=== PATIENT | female | born 1960 | race Caucasian/White ===

== ENCOUNTER 2016-12-29 10:14 | Emergency (ER) | payer BC ==
[2016-12-29] MEDS ORDERED: IV NORMAL SALINE 1000ML BAG 1,000 ML IV ONE (10:45)
[2016-12-29] MEDS ORDERED: ONDANSETRON ODT 4 MG TAB.RAPDIS. PO ONE (11:00)
[2016-12-29] MEDS ORDERED: diazePAM 5 MG TABLET PO ONE (11:00)
[2016-12-29 11:03] LABS: BILIRUBIN,URINE SMALL (NEG); GLUCOSE,URINE NEGATIVE (NEG); NITRITE,URINE POSITIVE (NEG); PROTEIN,URINE 30 mg/dL (NEG-TRACE)
[2016-12-29 11:03] LABS: CALCIUM 9.7 mg/dL (8.5-10.1); CREATININE 0.8 mg/dL (0.6-1.0); GFR 74.7; POTASSIUM 3.7 mmol/L (3.5-5.1)
[2016-12-29 11:04] LABS: MAGNESIUM 1.9 mg/dL (1.8-2.4)
[2016-12-29 11:07] LABS: BASO % 1 % (0-3); EOS % 2 % (0-3); HEMATOCRIT 38.6 % (36.0-47.0); HEMOGLOBIN 13.3 g/dL (12.0-15.5); LYMPH # 2.3 x10^3/uL (1.0-4.8); LYMPH % 38 % (24-48); MEAN CORPUSCULAR HEMOGLOBIN 29 pg (25-35); MEAN CORPUSCULAR HGB CONC 35 g/dL (31-37); MEAN CORPUSCULAR VOLUME 85 fL (79-100); MONO % 7 % (0-9); NEUT % 52 % (31-73); PLATELET COUNT 231 x10^3/uL (140-400); RED BLOOD COUNT 4.55 x10^6/uL (3.50-5.40); RED CELL DISTRIBUTION WIDTH 13.5 % (11.5-14.5); WHITE BLOOD COUNT 6.1 x10^3/uL (4.0-11.0)
[2016-12-29 11:17] LABS: BARBITURATES NEG (NEG); BENZODIAZEPINES NEG (NEG); CANNABINOIDS NEG (NEG); COCAINE NEG (NEG); METHADONE NEG (NEG); OPIATES NEG (NEG); PHENCYCLIDINE NEG (NEG)
[2016-12-29 11:17] LABS: INR 1.1 (0.8-1.1); PROTHROMBIN TIME PATIENT 13.5 SEC (11.7-14.0)
--- NOTE | 2016-12-29 11:17 | PHYS DOC ---
Past Medical History Past Medical History: Depression, Diabetes-Type II, Hypertension Past Surgical History: Cholecystectomy, Hysterectomy Alcohol Use: None Drug Use: None Adult General Chief Complaint Chief Complaint: HEADACHE HPI HPI Patient is a 56 year old female with history of hypertension, depression, diabetes type 2, who presents today with multiple complaints including 8-05/15/09 throbbing generalized headache for 4 days with intermittent episodes of dizziness, mild left wrist pain diffusely for 2 weeks, low back pain mild in nature for 2 weeks from sleeping on a couch. Patient denies a headache being the worst headache in her life. Patient states she is going through a lot of stress. She states she broke up with the and she is going through a divorce. She states they have an 18-year-old son and the ex- cannot see the son. She states she has a boyfriend currently who has history of cardiac problems. She states the boyfriend just skipped $15,000 bail which is putting patient under a lot of stress plus he is going through surgery for his back problems. She states she is under overwhelming stress. She states she used to take Zoloft for depression but she feels it's not helping. Patient denies any suicidal or homicidal ideation. Review of Systems Review of Systems Constitutional: Denies fever or chills [] Eyes: Denies change in visual acuity, redness, or eye pain [] HENT: Denies nasal congestion or sore throat [] Respiratory: Denies cough or shortness of breath [] Cardiovascular: No additional information not addressed in HPI [] GI: Denies abdominal pain, nausea, vomiting, bloody stools or diarrhea [] : Denies dysuria or hematuria [] Musculoskeletal: Left wrist pain, low back pain Integument: Denies rash or skin lesions [] Neurologic: Headache with dizziness Endocrine: Denies polyuria or polydipsia [] Psych:stress Current Medications Current Medications Current Medications Medications (Trade) Dose Ordered Sig/Inessa Start Time Stop Time Status Last Admin Dose Admin Diazepam (Valium) 5 mg 1X ONCE 12/29/16 11:00 12/29/16 11:01 DC 12/29/16 11:26 5 MG Ketorolac Tromethamine (Toradol) 30 mg 1X ONCE 12/29/16 12:00 12/29/16 12:01 DC 12/29/16 12:12 30 MG Ondansetron HCl (Zofran Odt) 4 mg 1X ONCE 12/29/16 11:00 12/29/16 11:01 DC 12/29/16 11:27 4 MG Sodium Chloride 1,000 ml @ 1,000 mls/hr 1X ONCE 12/29/16 10:45 12/29/16 11:44 DC 12/29/16 11:26 1,000 MLS/HR Allergies Allergies Allergies Coded Allergies Type Severity Reaction Last Updated Verified No Known Drug Allergies 12/29/16 No Physical Exam Physical Exam Constitutional: Well developed, well nourished, no acute distress, non-toxic appearance. [] HENT: Normocephalic, atraumatic, bilateral external ears normal, oropharynx moist, no oral exudates, nose normal. [] Eyes: PERRLA, EOMI, conjunctiva normal, no discharge. [] Neck: Normal range of motion, no tenderness, supple, no stridor. [] Cardiovascular:Heart rate regular rhythm, no murmur [] Lungs & Thorax: Bilateral breath sounds clear to auscultation [] Abdomen: Bowel sounds normal, soft, no tenderness, no masses, no pulsatile masses. [] Skin: Warm, dry, no erythema, no rash. [] Back: No tenderness, no CVA tenderness. [] Extremities: No tenderness, no cyanosis, no clubbing, ROM intact, no edema. [] Neurologic: Alert and oriented X 3, normal motor function, normal sensory function, no focal deficits noted. Cranial nerves II through XII intact Psychologic: Affect normal, judgement normal, mood normal. [] Current Patient Data Vital Signs Vital Signs Date Time Temp Pulse Resp B/P (MAP) Pulse Ox O2 Delivery O2 Flow Rate FiO2 12/29/16 11:28 59 18 180/86 (117) 99 Room Air 12/29/16 10:23 97.5 97.5 Lab Values Laboratory Tests Test 12/29/16 10:28 12/29/16 10:40 Urine Collection Type Unknown Urine Color Dilia Urine Clarity Clear Urine pH 6.0 Urine Specific [place] >=1.030 Urine Protein 30 mg/dL (NEG-TRACE) Urine Glucose (UA) Negative mg/dL (NEG) Urine Ketones (Stick) Negative mg/dL (NEG) Urine Blood Negative (NEG) Urine Nitrite Positive (NEG) Urine Bilirubin Small (NEG) Urine Urobilinogen Dipstick 1.0 mg/dL (0.2 mg/dL) Urine Leukocyte Esterase Small (NEG) Urine RBC Occ /HPF (0-2) Urine WBC 5-10 /HPF (0-4) Urine Squamous Epithelial Cells Few /LPF Urine Bacteria Mod /HPF (0-FEW) Urine Hyaline Casts Occasional /HPF Urine Mucus Mod /LPF Urine Opiates Screen Neg (NEG) Urine Methadone Screen Neg (NEG) Urine Barbiturates Neg (NEG) Urine Phencyclidine Screen Neg (NEG) Urine Amphetamine/Methamphetamine Neg (NEG) Urine Benzodiazepines Screen Neg (NEG) Urine Cocaine Screen Neg (NEG) Urine Cannabinoids Screen Neg (NEG) Urine Ethyl Alcohol Neg (NEG) White Blood Count 6.1 x10^3/uL (4.0-11.0) Red Blood Count 4.55 x10^6/uL (3.50-5.40) Hemoglobin 13.3 g/dL (12.0-15.5) Hematocrit 38.6 % (36.0-47.0) Mean Corpuscular Volume 85 fL (79-100) Mean Corpuscular Hemoglobin 29 pg (25-35) Mean Corpuscular Hemoglobin Concent 35 g/dL (31-37) Red Cell Distribution Width 13.5 % (11.5-14.5) Platelet Count 231 x10^3/uL (140-400) Neutrophils (%) (Auto) 52 % (31-73) Lymphocytes (%) (Auto) 38 % (24-48) Monocytes (%) (Auto) 7 % (0-9) Eosinophils (%) (Auto) 2 % (0-3) Basophils (%) (Auto) 1 % (0-3) Neutrophils # (Auto) 3.2 x10^3uL (1.8-7.7) Lymphocytes # (Auto) 2.3 x10^3/uL (1.0-4.8) Monocytes # (Auto) 0.4 x10^3/uL (0.0-1.1) Eosinophils # (Auto) 0.1 x10^3/uL (0.0-0.7) Basophils # (Auto) 0.0 x10^3/uL (0.0-0.2) Prothrombin Time 13.5 SEC (11.7-14.0) Prothrombin Time INR 1.1 (0.8-1.1) PTT 29 SEC (24-38) Sodium Level 141 mmol/L (136-145) Potassium Level 3.7 mmol/L (3.5-5.1) Chloride Level 103 mmol/L (98-107) Carbon Dioxide Level 28 mmol/L (21-32) Anion Gap 10 (6-14) Blood Urea Nitrogen 11 mg/dL (7-20) Creatinine 0.8 mg/dL (0.6-1.0) Estimated GFR (Cockcroft-Gault) 74.7 Glucose Level 192 mg/dL (70-99) H Calcium Level 9.7 mg/dL (8.5-10.1) Magnesium Level 1.9 mg/dL (1.8-2.4) Creatine Kinase 42 U/L (26-192) Creatine Kinase MB (Mass) 0.5 ng/mL (0.0-3.6) Creatine Kinase MB Relative Index % (0-4) Troponin I Quantitative < 0.017 ng/mL (0.000-0.055) RL-Zgt-D-Type Natriuretic Peptide 232 pg/mL (0-124) H Ethyl Alcohol Level < 10 mg/dL (0-10) Laboratory Tests 12/29/16 10:40 Laboratory Tests 12/29/16 10:40 EKG EKG 11:[address] Gauri gerardo rym, HR 56 no STEMI[] Radiology/Procedures Radiology/Procedures [] Course & Med Decision Making Course & Med Decision Making Pertinent Labs and Imaging studies reviewed. (See chart for details) This is a 56-year-old female patient presenting to the ED today with multiple complaints related to stress. Patient states as noted in history of present illness she is going through a divorce and currently is dating another man that has medical problems and also skipped a $[id number] bail causing patient alot of stress. Patient just came from one of the floors in the hospital where the boyfriend is admitted waiting for MRI of his lumbar spine as well as surgery on his lumbar spine for chronic back pain. Please see history of present illness for further information Patient's workup in the ED was essentially negative. Her urine was noted to have nitrites. She'll be discharged with Cipro. She was discharged with [id number] tablets and diclofenac for her pain. I highly recommended she follows up with [facility] for stress. Her blood pressure was 164/81 to 180 /86 on arrival to the ED. Patient states she just took her blood pressure medicines prior to coming to the ED. She takes amlodipine/HCTZ, lisinopril and one more medication she could not remember. We will recheck her blood pressure before she leaves. Dragon Disclaimer Dragon Disclaimer This electronic medical record was generated, in whole or in part, using a voice recognition dictation system. Departure Departure Impression: Primary Impression: Stress Additional Impressions: Hypertension Urinary tract infection Headache Back pain Disposition: HOME, SELF-CARE Condition: STABLE Patient Instructions: Anxiety and Panic Attacks, [id number], Back Pain, Adult , General Headache Without Cause, [id number], Hypertension Additional Instructions: You were seen for stress related symptoms, try and contact [facility] on Sunday, their phone number is [phone] and follow up for stress. Your urine also tested positive for infection. We put you on antibiotics. Ensure you complete them. Scripts Ciprofloxacin Hcl (CIPRO) 500 Mg Tablet 1 TAB PO BID, #14 TAB Prov: HERMILO BENNETT APRN 12/29/16 Diazepam (VALIUM) 5 Mg Tablet 5 MG PO TID, #15 TAB Prov: HERMILO BENNETT APRN 12/29/16 Diclofenac Sodium (DICLOFENAC SODIUM) 50 Mg Tablet.dr 1 TAB PO BID, #20 TAB 0 Refills Prov: HERMILO BENNETT APRN 12/29/16 Problem Qualifiers Additional Impressions: Hypertension Hypertension type: unspecified secondary hypertension Qualified Codes: I15.9 - Secondary hypertension, unspecified Urinary tract infection Urinary tract infection type: acute cystitis Hematuria presence: without hematuria Qualified Codes: N30.00 - Acute cystitis without hematuria Headache Headache type: unspecified Headache chronicity pattern: acute headache Intractability: not intractable Qualified Codes: R51 - Headache Back pain Back pain location: low back pain Chronicity: acute Back pain laterality: bilateral Sciatica presence: without sciatica Qualified Codes: M54.5 - Low back pain HERMILO BENNETT APRN Dec 29, 2016 11:17
[2016-12-29 11:18] LABS: CKMB MASS 0.5 ng/mL (0.0-3.6); CREATINE KINASE 42 U/L (26-192)
[2016-12-29 11:24] LABS: BACTERIA,URINE MOD /HPF (0-FEW); RBC,URINE OCC /HPF (0-2); SQUAMOUS EPITHELIAL CELL,UR FEW /LPF
[2016-12-29] MEDS ORDERED: KETOROLAC TROMETHAMINE 30 MG/ML INJ. IV ONE (12:00)
[2016-12-29] MEDS ORDERED: DICL50TA4 PO (12:39)
[2016-12-29] MEDS ORDERED: DIAZ5TAB PO (12:39)
[2016-12-29] MEDS ORDERED: CIPR500T94 PO (12:43)
[2016-12-29 12:46] VITALS: BP 171/80
--- NOTE | 2016-12-29 13:01 | EKG ---
[facility] [address] [place] [address] Test Date: 2016-12-29 Test Time: 11:03:20 Pat Name: MASHA GAITAN Department: Room: Gender: F [place]: : 1960 Requested By: HERMILO BENNETT Order Number: [id number] Reading MD: Savannah Valverde Measurements Intervals [place] Rate: 56 P: 46 ND: 192 QRS: 28 QRSD: 80 T: 48 QT: 422 QTc: 410 Interpretive Statements SINUS RHYTHM NORMAL ECG Electronically Signed On 12-30-2016 16:19:01 CDT by Savannah Valverde
== END 2016-12-29 13:03 | disposition home or self-care (01) ==
LOC: ER 10:14
DX: F43.9 Reaction to severe stress, unspecified (principal); I15.9 Secondary hypertension, unspecified; N30.00 Acute cystitis without hematuria; E11.9 Type 2 diabetes mellitus without complications
CPT/HCPCS: 36415; 80048; 80307; 81001; 82553; 83735; 83880; 84484; 85025; 85610; 85730; 93005; 96361; 96374; 99285; G0480; J1885; J7030; Q0162; G0479

== ENCOUNTER 2018-02-19 06:48 | Emergency (ER) | payer SELFPAY ==
[~2018-02-19] VITALS: Ht 165.1 cm; Wt 83.9 kg
[~2018-02-19 06:48] MED LIST: CIPR500T94 PO; DIAZ5TAB PO; DICL50TA4 PO
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
[2018-02-19 08:30] VITALS: BP 180/82
== END 2018-02-19 08:49 | disposition home or self-care (01) ==
LOC: ER 07:22
DX: M25.561 Pain in right knee (principal); I10 Essential (primary) hypertension; E11.9 Type 2 diabetes mellitus without complications; F32.9 Major depressive disorder, single episode, unspecified; Z90.49 Acquired absence of other specified parts of digestive tract; Z90.710 Acquired absence of both cervix and uterus
CPT/HCPCS: 99283

== ENCOUNTER 2018-04-25 17:48 | Emergency (ER) | payer SELFPAY ==
[~2018-04-25] VITALS: Ht 165.1 cm; Wt 83.9 kg
--- NOTE | 2018-04-25 18:23 | PHYS DOC ---
Past Medical History Past Medical History: Depression, Diabetes-Type II, Hypertension Past Surgical History: Cholecystectomy, Hysterectomy Alcohol Use: None Drug Use: None Adult General Chief Complaint Chief Complaint: ACCIDENTAL INGESTION HPI HPI Patient is a 57 year old female who presents with drug ingestion. The patient was at her house around 1600 today. She states she took for 2 mg Xanax and for tizanidine. The medications were not hers. They blocked her boyfriend. The patient to the medication because she was upset that she found out her boyfriend was cheating on her today. She denies feeling suicidal. She has never done this in the past. She denies prior history of psychiatric issues. Review of Systems Review of Systems Constitutional: Denies fever or chills [] Eyes: Denies change in visual acuity, redness, or eye pain [] HENT: Denies nasal congestion or sore throat [] Respiratory: Denies cough or shortness of breath [] Cardiovascular: No additional information not addressed in HPI [] GI: Denies abdominal pain, nausea, vomiting, bloody stools or diarrhea [] : Denies dysuria or hematuria [] Musculoskeletal: Denies back pain or joint pain [] Integument: Denies rash or skin lesions [] Neurologic: Denies headache, focal weakness or sensory changes [] Endocrine: Denies polyuria or polydipsia [] All other systems were reviewed and found to be within normal limits, except as documented in this note. Allergies Allergies Allergies Coded Allergies Type Severity Reaction Last Updated Verified No Known Drug Allergies 12/29/16 No Physical Exam Physical Exam Constitutional: Well developed, well nourished, no acute distress, non-toxic appearance. [] HENT: Normocephalic, atraumatic, bilateral external ears normal, oropharynx moist, no oral exudates, nose normal. [] Eyes: PERRLA, EOMI, conjunctiva normal, no discharge. [] Neck: Normal range of motion, no tenderness, supple, no stridor. [] Cardiovascular:Heart rate regular rhythm, no murmur [] Lungs & Thorax: Bilateral breath sounds clear to auscultation [] Abdomen: Bowel sounds normal, soft, no tenderness, no masses, no pulsatile masses. [] Skin: Warm, dry, no erythema, no rash. [] Back: No tenderness, no CVA tenderness. [] Extremities: No tenderness, no cyanosis, no clubbing, ROM intact, no edema. [] Neurologic: Alert and oriented X 3, normal motor function, normal sensory function, no focal deficits noted. [] Psychologic: Affect normal, judgement normal, mood normal. [] Current Patient Data Vital Signs Vital Signs Date Time Temp Pulse Resp B/P (MAP) Pulse Ox O2 Delivery O2 Flow Rate FiO2 04/25/18 22:50 56 14 144/70 (94) 95 Room Air 04/25/18 17:50 97.5 97.5 Lab Values Laboratory Tests Test 04/25/18 17:58 04/25/18 19:09 White Blood Count 4.9 x10^3/uL (4.0-11.0) Red Blood Count 4.28 x10^6/uL (3.50-5.40) Hemoglobin 12.6 g/dL (12.0-15.5) Hematocrit 36.9 % (36.0-47.0) Mean Corpuscular Volume 86 fL (79-100) Mean Corpuscular Hemoglobin 29 pg (25-35) Mean Corpuscular Hemoglobin Concent 34 g/dL (31-37) Red Cell Distribution Width 13.9 % (11.5-14.5) Platelet Count 170 x10^3/uL (140-400) Neutrophils (%) (Auto) 46 % (31-73) Lymphocytes (%) (Auto) 41 % (24-48) Monocytes (%) (Auto) 5 % (0-9) Eosinophils (%) (Auto) 7 % (0-3) H Basophils (%) (Auto) 1 % (0-3) Neutrophils # (Auto) 2.3 x10^3uL (1.8-7.7) Lymphocytes # (Auto) 2.0 x10^3/uL (1.0-4.8) Monocytes # (Auto) 0.3 x10^3/uL (0.0-1.1) Eosinophils # (Auto) 0.3 x10^3/uL (0.0-0.7) Basophils # (Auto) 0.0 x10^3/uL (0.0-0.2) Salicylates Level < 2.8 mg/dL (2.8-20.0) L Salicylate Last Dose Date Salicylate Last Dose Time Acetaminophen Level < 2 mcg/ml (10-30) L Acetaminophen Last Dose Date Acetaminophen Last Dose Time Urine Opiates Screen Neg (NEG) Urine Methadone Screen Neg (NEG) Urine Barbiturates Neg (NEG) Urine Phencyclidine Screen Neg (NEG) Urine Amphetamine/Methamphetamine Neg (NEG) Urine Benzodiazepines Screen Pos (NEG) Urine Cocaine Screen Neg (NEG) Urine Cannabinoids Screen Neg (NEG) Urine Ethyl Alcohol Neg (NEG) Laboratory Tests 04/25/18 17:58 EKG EKG No STEMI Interpretation Time: 18:05 Radiology/Procedures Radiology/Procedures [] Course & Med Decision Making Course & Med Decision Making Pertinent Labs and Imaging studies reviewed. (See chart for details) Patient was evaluated in the emergency department after taking 4 times in and for 2 mg Xanax. She took the medications at about 1600 today. The patient was not trying to kill herself. In the emergency department, she did have slurred speech on arrival and was somnolent but easily aroused. She was observed in the emergency department for a period of over 6 hours. She did become more awake during the ED course. Her vital signs remained stable throughout the ED course. Her EKG was nonacute with no QTC prolongation. Her drug screen was positive only for benzodiazepines. Her Tylenol and salicylate levels were not elevated. Her CBC was all normal range. The patient was evaluated by the psychiatric assessment team who deemed her fit for discharge to home as the patient did not have acute suicidality. After the period of observation, the patient was awake and alert. Transportation was provided for her to go home. She was provided resources to follow up to help with her stressful time. She was encouraged to come to the ER for any worsening symptoms. At discharge, the patient did express remorse for taking the medications and emphasized that she was not suicidal. Dragon Disclaimer Dragon Disclaimer This electronic medical record was generated, in whole or in part, using a voice recognition dictation system. Departure Departure Condition: GOOD Referrals: NO PCP (PCP) TREVON HDZ DO Apr 25, 2018 18:23
[2018-04-25 19:22] LABS: AMPHETAMINE/METHAMPHETAMINE NEG (NEG); BARBITURATES NEG (NEG); BENZODIAZEPINES POS (NEG); CANNABINOIDS NEG (NEG); COCAINE NEG (NEG); METHADONE NEG (NEG); OPIATES NEG (NEG); PHENCYCLIDINE NEG (NEG)
[2018-04-25 20:55] LABS: BASO % 1 % (0-3); EOS # 0.3 x10^3/uL (0.0-0.7); EOS % 7 % (0-3); HEMATOCRIT 36.9 % (36.0-47.0); HEMOGLOBIN 12.6 g/dL (12.0-15.5); LYMPH % 41 % (24-48); MEAN CORPUSCULAR HEMOGLOBIN 29 pg (25-35); MEAN CORPUSCULAR HGB CONC 34 g/dL (31-37); MEAN CORPUSCULAR VOLUME 86 fL (79-100); MONO # 0.3 x10^3/uL (0.0-1.1); MONO % 5 % (0-9); NEUT # 2.3 x10^3uL (1.8-7.7); NEUT % 46 % (31-73); PLATELET COUNT 170 x10^3/uL (140-400); RED BLOOD COUNT 4.28 x10^6/uL (3.50-5.40); RED CELL DISTRIBUTION WIDTH 13.9 % (11.5-14.5); WHITE BLOOD COUNT 4.9 x10^3/uL (4.0-11.0)
[2018-04-25 21:14] LABS: ACETAMIN < 2 mcg/ml (10-30); SALIC < 2.8 mg/dL (2.8-20.0)
[2018-04-26 00:30] VITALS: BP 119/70
--- NOTE | 2018-04-26 07:38 | EKG ---
[facility] [address] [place] [address] Test Date: 2018-04-25 Test Time: 18:01:52 Pat Name: MASHA GAITAN Department: Room: Gender: F [place]: : 1960 Requested By: TREVON HDZ Order Number: [id number] Reading MD: Dhaval Solano MD Measurements Intervals [place] Rate: 53 P: NE: QRS: 25 QRSD: 82 T: 77 QT: 426 QTc: 405 Interpretive Statements SR Electronically Signed On 04-29-2018 10:36:42 TELEPHONE ASSEMBLER by Dhaval Solano MD
== END 2018-04-26 01:06 | disposition home or self-care (01) ==
LOC: ER 17:48
DX: T42.4X1A Poisoning by benzodiazepines, accidental (unintentional), initial encounter (principal); T42.8X1A Poisoning by antiparkinsonism drugs and other central muscle-tone depressants, accidental (unintentional), initial encounter; R47.81 Slurred speech; F32.9 Major depressive disorder, single episode, unspecified; E11.9 Type 2 diabetes mellitus without complications; I10 Essential (primary) hypertension; Z90.49 Acquired absence of other specified parts of digestive tract; Z90.710 Acquired absence of both cervix and uterus; Y92.099 Unspecified place in other non-institutional residence as the place of occurrence of the external cause
CPT/HCPCS: 36415; 80307; 80329; 85025; 93005; 99284; G6039; G0480

== ENCOUNTER 2018-05-27 19:24 | Emergency (ER) | payer SELFPAY ==
[~2018-05-27] VITALS: Ht 165.1 cm; Wt 83.9 kg
[2018-05-27] MEDS ORDERED: IBUPROFEN 400 MG TABLET. PO ONE (19:45)
[2018-05-27] MEDS ORDERED: HYDROcodone/APAP 5/325MG 1 TAB TABLET PO ONE (19:45)
--- NOTE | 2018-05-27 19:45 | PHYS DOC ---
Past Medical History Past Medical History: Anxiety, Depression, Diabetes-Type II, Hypertension Past Surgical History: Cholecystectomy, Hysterectomy Alcohol Use: None Drug Use: None Adult General Chief Complaint Chief Complaint: MECHANICAL FALL HPI HPI Patient is a 57 year old female who presents with low back pain after a fall. Patient states she fell 2 days earlier while she was in the bathtub. She slipped on a piece of soap and fell backwards landing on her back. Today, she presents to the emergency department complaining of lumbar spine pain. She also complains of some abdominal wall pain. She has been having pain over the last 48 hours. She has been able to ambulate. Denies urinary symptoms. She did not strike her head. She does not complain of cervical neck pain. No loss of consciousness. No nausea or vomiting. Note, the patient arrives via ambulance and is ambulatory through the door to her room. She is taking on her cell phone during the interview and examination. No distress. Review of Systems Review of Systems Constitutional: Denies fever or chills Eyes: Denies change in visual acuity HENT: Denies nasal congestion Respiratory: Denies cough or shortness of breath Cardiovascular: No additional information not addressed in HPI GI: + abdominal wall pain : Denies dysuria or hematuria Musculoskeletal: lumbar pain as described above Integument: Denies rash or skin lesions Neurologic: Denies headache All other systems were reviewed and found to be within normal limits, except as documented in this note. Current Medications Current Medications Current Medications Medications (Trade) Dose Ordered Sig/Inessa Start Time Stop Time Status Last Admin Dose Admin Acetaminophen/ Hydrocodone Bitart (Lortab 5/325) 1 tab 1X ONCE 05/27/18 19:45 05/27/18 19:46 DC 05/27/18 19:57 1 TAB Ibuprofen (Motrin) 800 mg 1X ONCE 05/27/18 19:45 05/27/18 19:46 DC 05/27/18 19:58 800 MG Allergies Allergies Allergies Coded Allergies Type Severity Reaction Last Updated Verified No Known Drug Allergies 12/29/16 No Physical Exam Physical Exam Constitutional: Well developed, well nourished, no acute distress, non-toxic appearance HENT: Normocephalic, atraumatic, bilateral external ears normal, oropharynx moist Eyes: PERRLA, EOMI Neck: Normal range of motion, no tenderness Cardiovascular:Heart rate regular rhythm, no murmur Lungs & Thorax: Bilateral breath sounds clear to auscultation Abdomen: Bowel sounds normal, soft, no tenderness, no trauma Skin: Warm, dry, no erythema, no rash, no signs of trauma Back: TTP over the lumbar midline and paraspinal muscles Extremities: No trauma seen. Normal examination Neurologic: Alert and oriented X 3 Psychologic: Affect normal Current Patient Data Vital Signs Vital Signs Date Time Temp Pulse Resp B/P (MAP) Pulse Ox O2 Delivery O2 Flow Rate FiO2 05/27/18 20:37 85 18 96 05/27/18 19:34 98.1 182/77 (112) Room Air 98.1 EKG EKG [] Radiology/Procedures Radiology/Procedures Lumbar XR: Comparison: None are available Vertebral body height is maintained. There is mild degenerative spondylosis with marginal spurring. No significant subluxation. Aortic calcification. Surgical clips right upper quadrant. Posterior element defect incidentally noted at about L5. IMPRESSION: Degenerative spondylosis, mild. Course & Med Decision Making Course & Med Decision Making Pertinent Labs and Imaging studies reviewed. (See chart for details) 20:40: Patient is seen and examined. She is complaining primarily of lumbar back pain. She also complains of pain about the abdominal wall. Her abdominal exam is completely benign and there is no tenderness to palpation or signs of trauma. She does have tenderness to palpation about the midline in the lumbar area so plain film radiographs are ordered. Tramadol and ibuprofen are ordered for pain symptoms. 21:15: X-ray results are reviewed. There are no acute findings. Plan is for discharge home. The patient is given some ibuprofen and Lostant for pain symptoms at home. She is advised to come back to the ER for any new or worsening symptoms. She is agreeable to the plan of care and all of her questions are answered prior to discharge home. Dragon Disclaimer Lalaon Disclaimer This electronic medical record was generated, in whole or in part, using a voice recognition dictation system. Departure Departure Disposition: HOME, SELF-CARE Condition: GOOD Referrals: NO PCP (PCP) Scripts Hydrocodone/Apap 5-325 (NORCO 5-325 TABLET) 1 Each Tablet 1-2 EACH PO PRN Q6HRS PRN for SEVERE PAIN, #15 as needed for pain Prov: TREVON HDZ DO 05/27/18 Ibuprofen (IBUPROFEN) 800 Mg Tablet 800 MG PO PRN TID PRN for PAIN, #30 TAB take with food or milk to avoid upsetting stomach Prov: TREVON HDZ DO 05/27/18 TREVON HDZ DO May 27, 2018 19:45
[2018-05-27 20:37] VITALS: BP 184/80
--- NOTE | 2018-05-27 21:11 | RAD ---
LUMBAR SPINE 2-3V History: fall x2 days. lower back pain. Comparison: None are available Vertebral body height is maintained. There is mild degenerative spondylosis with marginal spurring. No significant subluxation. Aortic calcification. Surgical clips right upper quadrant. Posterior element defect incidentally noted at about L5. IMPRESSION: Degenerative spondylosis, mild. Electronically signed by: Ritesh Solomon MD (05/27/2018 9:07 PM) [facility]
[2018-05-27] MEDS ORDERED: IBUP-1060 PO (21:17)
[2018-05-27] MEDS ORDERED: HYDR-3164 PO (21:17)
== END 2018-05-27 21:17 ==
LOC: ER 19:24
DX: M47.896 Other spondylosis, lumbar region (principal); R10.9 Unspecified abdominal pain; F41.9 Anxiety disorder, unspecified; F32.9 Major depressive disorder, single episode, unspecified; E11.9 Type 2 diabetes mellitus without complications; I10 Essential (primary) hypertension; Z90.49 Acquired absence of other specified parts of digestive tract; Z90.710 Acquired absence of both cervix and uterus; W01.0XXA Fall on same level from slipping, tripping and stumbling without subsequent striking against object, initial encounter; Y93.89 Activity, other specified; Y92.89 Other specified places as the place of occurrence of the external cause; Y99.8 Other external cause status
CPT/HCPCS: 72100; 99283

== ENCOUNTER 2018-07-11 17:28 | Emergency (ER) | payer SELFPAY ==
[~2018-07-11] VITALS: Ht 165.1 cm; Wt 81.6 kg
[~2018-07-11 17:28] MED LIST changes: +HYDR-3164 PO; +IBUP-1060 PO
[2018-07-11 18:15] VITALS: BP 154/83
[2018-07-11] MEDS ORDERED: KETOROLAC 60 MG/2 ML VIAL. IM ONE (18:30)
--- NOTE | 2018-07-11 19:00 | PHYS DOC ---
Past Medical History Past Medical History: Anxiety, Depression, Diabetes-Type II, Hypertension Past Surgical History: Cholecystectomy, Hysterectomy Alcohol Use: None Drug Use: None Adult General Chief Complaint Chief Complaint: GENERALIZED BODY ACHES HPI HPI Patient is a 57 year old female who presents with muscle pains with no injury. The patient states she has been achy. She has not taken ibuprofen or tylenol. She has not seen her primary. Review of Systems Review of Systems Constitutional: Denies fever or chills [] Eyes: Denies change in visual acuity, redness, or eye pain [] HENT: Denies nasal congestion or sore throat [] Respiratory: Denies cough or shortness of breath [] Cardiovascular: No additional information not addressed in HPI [] GI: Denies abdominal pain, nausea, vomiting, bloody stools or diarrhea [] : Denies dysuria or hematuria [] Musculoskeletal: See HPI Integument: Denies rash or skin lesions [] Neurologic: Denies headache, focal weakness or sensory changes [] Endocrine: Denies polyuria or polydipsia [] All other systems were reviewed and found to be within normal limits, except as documented in this note. Current Medications Current Medications Current Medications Medications (Trade) Dose Ordered Sig/Inessa Start Time Stop Time Status Last Admin Dose Admin Ketorolac Tromethamine (Toradol Im) 60 mg 1X ONCE 07/11/18 18:30 07/11/18 18:31 DC 07/11/18 18:51 60 MG Allergies Allergies Allergies Coded Allergies Type Severity Reaction Last Updated Verified No Known Drug Allergies 12/29/16 No Physical Exam Physical Exam Constitutional: Well developed, well nourished, no acute distress, non-toxic appearance. [] HENT: Normocephalic, atraumatic, bilateral external ears normal, oropharynx moist, no oral exudates, nose normal. [] Eyes: PERRLA, EOMI, conjunctiva normal, no discharge. [] Neck: Normal range of motion, no tenderness, supple, no stridor. [] Cardiovascular:Heart rate regular rhythm, no murmur [] Lungs & Thorax: Bilateral breath sounds clear to auscultation [] Abdomen: Bowel sounds normal, soft, no tenderness, no masses, no pulsatile masses. [] Skin: Warm, dry, no erythema, no rash. [] Back: No tenderness, no CVA tenderness. [] Extremities: No point tenderness or ecchymosis, no cyanosis, no clubbing, ROM intact, no edema. [] Neurologic: Alert and oriented X 3, normal motor function, normal sensory function, no focal deficits noted. [] Psychologic: Affect normal, judgement normal, mood normal. [] EKG EKG [] Radiology/Procedures Radiology/Procedures [] Course & Med Decision Making Course & Med Decision Making Pertinent Labs and Imaging studies reviewed. (See chart for details) []The patient was given toradol in the ED. She is to follow up with her PCP if her muscle aches return. Dragon Disclaimer Dragon Disclaimer This electronic medical record was generated, in whole or in part, using a voice recognition dictation system. Departure Departure Impression: Primary Impression: Myalgia Disposition: 01 HOME, SELF-CARE Condition: STABLE Referrals: NO PCP (PCP) Patient Instructions: Myalgia, Adult Additional Instructions: You may take ibuprofen or Tylenol for pain. Follow-up with your primary care provider for a recheck in 3 days. NOEMI JAVIER APRN Jul 11, 2018 19:00
== END 2018-07-11 19:10 | disposition home or self-care (01) ==
LOC: ER 17:28
DX: M79.18 Myalgia, other site (principal); F41.9 Anxiety disorder, unspecified; F32.9 Major depressive disorder, single episode, unspecified; E11.9 Type 2 diabetes mellitus without complications; I10 Essential (primary) hypertension; Z90.49 Acquired absence of other specified parts of digestive tract; Z90.710 Acquired absence of both cervix and uterus
CPT/HCPCS: 96372; 99283; J1885

== ENCOUNTER 2018-11-20 09:58 | Emergency (ER) | payer SELFPAY ==
[~2018-11-20] VITALS: Ht 165.1 cm; Wt 83.9 kg
[2018-11-20 10:00] VITALS: BP 155/93
[2018-11-20] MEDS ORDERED: KETOROLAC 30 MG/ML VIAL. IM ONE (10:45)
[2018-11-20] MEDS ORDERED: CYCLOBENZAPRINE 10 MG TABLET. PO ONE (10:45)
--- NOTE | 2018-11-20 11:12 | RAD ---
Three-view lumbar spine radiographs 11/20/2018 CLINICAL HISTORY: Low back pain. Fall. AP and 2 lateral digital radiographs of the lumbar spine were obtained. The alignment of the lumbar vertebrae is within normal limits. No fracture or subluxation is seen. Degenerative changes are seen involving the lower thoracic and throughout the lumbar disc spaces consisting of vertebral endplate sclerosis and minimal to mild anterior and posterior vertebral body osteophyte formation. Degenerative changes are seen involving the facet joints at L4-5 and L5-S1. Atherosclerotic calcification of the abdominal aorta is seen. IMPRESSION: No fracture or subluxation of the lumbar vertebrae is seen. Electronically signed by: Eyad Jacobo MD (11/20/2018 11:09 AM) [facility]
[2018-11-20] MEDS ORDERED: NAPR-695 PO (11:45)
[2018-11-20] MEDS ORDERED: ORPH100T PO (11:45)
--- NOTE | 2018-11-20 11:46 | PHYS DOC ---
Past Medical History Past Medical History: Anxiety, Depression, Diabetes-Type II, Hypertension Past Surgical History: Cholecystectomy, Hysterectomy Alcohol Use: Rarely Drug Use: None Adult General Chief Complaint Chief Complaint: SHOULDER INJURY HPI HPI Patient is a 57 year old [f__sex] who presents with [] Review of Systems Review of Systems Constitutional: Denies fever or chills [] Eyes: Denies change in visual acuity, redness, or eye pain [] HENT: Denies nasal congestion or sore throat [] Respiratory: Denies cough or shortness of breath [] Cardiovascular: No additional information not addressed in HPI [] GI: Denies abdominal pain, nausea, vomiting, bloody stools or diarrhea [] : Denies dysuria or hematuria [] Musculoskeletal: Denies back pain or joint pain [] Integument: Denies rash or skin lesions [] Neurologic: Denies headache, focal weakness or sensory changes [] Endocrine: Denies polyuria or polydipsia [] All other systems were reviewed and found to be within normal limits, except as documented in this note. Current Medications Current Medications Current Medications Medications (Trade) Dose Ordered Sig/Inessa Start Time Stop Time Status Last Admin Dose Admin Cyclobenzaprine HCl (Flexeril) 10 mg 1X ONCE 11/20/18 10:45 11/20/18 10:47 DC 11/20/18 11:09 10 MG Ketorolac Tromethamine (Toradol 30mg Vial) 30 mg 1X ONCE 11/20/18 10:45 11/20/18 10:47 DC 11/20/18 11:10 30 MG Allergies Allergies Allergies Coded Allergies Type Severity Reaction Last Updated Verified No Known Drug Allergies 12/29/16 No Physical Exam Physical Exam Constitutional: Well developed, well nourished, no acute distress, non-toxic appearance. [] HENT: Normocephalic, atraumatic, bilateral external ears normal, oropharynx moist, no oral exudates, nose normal. [] Eyes: PERRLA, EOMI, conjunctiva normal, no discharge. [] Neck: Normal range of motion, no tenderness, supple, no stridor. [] Cardiovascular:Heart rate regular rhythm, no murmur [] Lungs & Thorax: Bilateral breath sounds clear to auscultation [] Abdomen: Bowel sounds normal, soft, no tenderness, no masses, no pulsatile masses. [] Skin: Warm, dry, no erythema, no rash. [] Back: No tenderness, no CVA tenderness. [] Extremities: No tenderness, no cyanosis, no clubbing, ROM intact, no edema. [] Neurologic: Alert and oriented X 3, normal motor function, normal sensory f unction, no focal deficits noted. [] Psychologic: Affect normal, judgement normal, mood normal. [] Current Patient Data Vital Signs Vital Signs Date Time Temp Pulse Resp B/P (MAP) Pulse Ox O2 Delivery O2 Flow Rate FiO2 11/20/18 10:00 98.3 78 18 155/93 (113) 96 Room Air 98.3 EKG EKG [] Radiology/Procedures Radiology/Procedures [] Course & Med Decision Making Course & Med Decision Making Pertinent Labs and Imaging studies reviewed. (See chart for details) [] Dragon Disclaimer Dragon Disclaimer This electronic medical record was generated, in whole or in part, using a voice recognition dictation system. Departure Departure Impression: Primary Impression: Fall Additional Impressions: Thoracic back pain Lumbar back pain Medication refill Disposition: HOME, SELF-CARE Condition: STABLE Referrals: NO PCP (PCP) Patient Instructions: Back Pain, Adult, [id number], Medication Refill, Emergency Department, Thoracic Strain, [id number] Scripts Insulin Detemir (LEVEMIR) 100 Unit/1 Ml Vial 20 UNIT SQ Q12HR, #1 VIAL Prov: JOANNE LINDSAY DO 11/20/18 Orphenadrine Citrate (ORPHENADRINE CITRATE) 100 Mg Tablet.er 100 MG PO BID PRN for MUSCLE PAIN, #14 Prov: JOANNE LINDSAY DO 11/20/18 Naproxen (NAPROXEN) 375 Mg Tablet 1 TAB PO TID PRN for PAIN, #20 TAB Prov: JOANNE LINDSAY DO 11/20/18 Problem Qualifiers Primary Impression: Fall Encounter type: initial encounter Qualified Codes: W19.XXXA - Unspecified fall, initial encounter Additional Impressions: Thoracic back pain Chronicity: acute Back pain laterality: right Qualified Codes: M54.6 - Pain in thoracic spine JOANNE LINDSAY DO Nov 20, 2018 11:46
[2018-11-20] MEDS ORDERED: INSU100V13 SQ (11:51)
== END 2018-11-20 11:59 | disposition home or self-care (01) ==
LOC: ER 09:58
DX: M54.5 Low back pain (principal); M54.6 Pain in thoracic spine; Z76.0 Encounter for issue of repeat prescription; M25.511 Pain in right shoulder; W18.09XA Striking against other object with subsequent fall, initial encounter; Y93.89 Activity, other specified; Y92.89 Other specified places as the place of occurrence of the external cause; Y99.8 Other external cause status
CPT/HCPCS: 72100; 82962; 96372; 99285; J1885

== ENCOUNTER 2018-12-17 20:54 | Emergency (ER) | payer SELFPAY ==
[~2018-12-17] VITALS: Ht 165.1 cm; Wt 83.9 kg
[~2018-12-17 20:54] MED LIST changes: +INSU100V13 SQ; +NAPR-695 PO; +ORPH100T PO
[2018-12-17 23:30] VITALS: BP 118/75
[2018-12-18] MEDS ORDERED: HYDR-3164 PO (01:16)
[2018-12-18] MEDS ORDERED: CHLO15MO2 PO (01:16)
[2018-12-18] MEDS ORDERED: AMOX1TAB61 PO (01:16)
--- NOTE | 2018-12-18 01:16 | PHYS DOC ---
Past Medical History Past Medical History: Anxiety, Depression, Diabetes-Type II, Hypertension Past Surgical History: Cholecystectomy, Hysterectomy Alcohol Use: Rarely Drug Use: None Adult General Chief Complaint Chief Complaint: DENTAL PROBLEM HPI HPI Patient is a 58 year old [f__sex] who presents with [] Review of Systems Review of Systems Constitutional: Denies fever or chills [] Eyes: Denies change in visual acuity, redness, or eye pain [] HENT: Denies nasal congestion or sore throat [] Respiratory: Denies cough or shortness of breath [] Cardiovascular: No additional information not addressed in HPI [] GI: Denies abdominal pain, nausea, vomiting, bloody stools or diarrhea [] : Denies dysuria or hematuria [] Musculoskeletal: Denies back pain or joint pain [] Integument: Denies rash or skin lesions [] Neurologic: Denies headache, focal weakness or sensory changes [] Endocrine: Denies polyuria or polydipsia [] All other systems were reviewed and found to be within normal limits, except as documented in this note. Allergies Allergies Allergies Coded Allergies Type Severity Reaction Last Updated Verified No Known Drug Allergies 12/29/16 No Physical Exam Physical Exam Constitutional: Well developed, well nourished, no acute distress, non-toxic appearance. [] HENT: Normocephalic, atraumatic, bilateral external ears normal, oropharynx moist, no oral exudates, nose normal. [] Eyes: PERRLA, EOMI, conjunctiva normal, no discharge. [] Neck: Normal range of motion, no tenderness, supple, no stridor. [] Cardiovascular:Heart rate regular rhythm, no murmur [] Lungs & Thorax: Bilateral breath sounds clear to auscultation [] Abdomen: Bowel sounds normal, soft, no tenderness, no masses, no pulsatile masses. [] Skin: Warm, dry, no erythema, no rash. [] Back: No tenderness, no CVA tenderness. [] Extremities: No tenderness, no cyanosis, no clubbing, ROM intact, no edema. [] Neurologic: Alert and oriented X 3, normal motor function, normal sensory function, no focal deficits noted. [] Psychologic: Affect normal, judgement normal, mood normal. [] Current Patient Data Vital Signs Vital Signs Date Time Temp Pulse Resp B/P (MAP) Pulse Ox O2 Delivery O2 Flow Rate FiO2 8/6/19 23:30 97.9 88 17 118/75 (89) 99 Room Air 97.9 EKG EKG [] Radiology/Procedures Radiology/Procedures [] Course & Med Decision Making Course & Med Decision Making Pertinent Labs and Imaging studies reviewed. (See chart for details) [] Dragon Disclaimer Dragon Disclaimer This electronic medical record was generated, in whole or in part, using a voice recognition dictation system. Departure Departure Impression: Primary Impression: Dentalgia Additional Impressions: Dental caries Gingivitis Disposition: HOME, SELF-CARE Condition: STABLE Referrals: NO PCP (PCP) Patient Instructions: Dental Caries, Gingivitis, [id number], Toothache-Brief Scripts Amoxicillin/Potassium Clav (AUGMENTIN 875-125 TABLET) 1 Each Tablet 1 TAB PO BID, #14 TAB Prov: JOANNE LINDSAY DO 12/18/18 Chlorhexidine Gluconate (PERIDEX) 15 Ml Mouthwash 15 ML PO BID, #473 ML Prov: JOANNE LINDSAY DO 12/18/18 Hydrocodone/Apap 5-325 (NORCO 5-325 TABLET) 1 Each Tablet 0.5-1 TAB PO PRN Q6HRS PRN for PAIN, #6 TAB 0 Refills Prov: JOANNE LINDSAY DO 12/18/18 Problem Qualifiers JOANNE LINDSAY DO Dec 18, 2018 01:16
[2018-12-18] MEDS ORDERED: AMOXICILLIN/K CLAV 875/125MG TABLET. PO ONE (01:30)
[2018-12-18] MEDS ORDERED: KETOROLAC 30 MG/ML VIAL. IM ONE (01:30)
[2018-12-18] MEDS ORDERED: DEXAMETHASONE 4 MG TABLET PO ONE (01:30)
== END 2018-12-18 01:50 | disposition home or self-care (01) ==
LOC: ER 20:54
DX: K02.9 Dental caries, unspecified (principal); K05.10 Chronic gingivitis, plaque induced; F41.9 Anxiety disorder, unspecified; F32.9 Major depressive disorder, single episode, unspecified; E11.9 Type 2 diabetes mellitus without complications; I10 Essential (primary) hypertension; Z90.49 Acquired absence of other specified parts of digestive tract; Z90.710 Acquired absence of both cervix and uterus
CPT/HCPCS: 96372; 99283; J1885; J8540

== ENCOUNTER 2019-03-23 10:00 | Emergency (ER) | payer SELFPAY ==
[~2019-03-23] VITALS: Ht 165.1 cm; Wt 90.7 kg
[~2019-03-23 10:00] MED LIST changes: +AMOX1TAB61 PO; +CHLO15MO2 PO
[2019-03-23] MEDS ORDERED: IV NORMAL SALINE 1000ML BAG 1,000 ML IV ONE (10:15)
[2019-03-23] MEDS ORDERED: GABAPENTIN 300 MG CAPSULE. PO SCH (10:15)
[2019-03-23] MEDS ORDERED: GABAPENTIN 300 MG CAPSULE. PO ONE (10:15)
[2019-03-23] MEDS ORDERED: ACETAMINOPHEN 500 MG TABLET PO ONE (10:15)
[2019-03-23] MEDS ORDERED: cloNIDine HCL 0.1 MG TABLET PO ONE (10:15)
--- NOTE | 2019-03-23 10:17 | PHYS DOC ---
Past Medical History Past Medical History: Anxiety, Depression, Diabetes-Type II, Hypertension Past Surgical History: Cholecystectomy, Hysterectomy Alcohol Use: Rarely Drug Use: None Adult General Chief Complaint Chief Complaint: DIZZY/LIGHT HEADED HPI HPI Patient is a 58 year old female with a history of diabetes type 2, hypertension, anxiety, depression, who presents to the ED today complaining of dizziness, lightheadedness, symptoms have been going on for 3 weeks, she states she ran out of her blood pressure medications 3 weeks ago and has not been able to get refills because she is waiting for her insurance to kick in. She states symptoms got worse in the last couple days. She is also complaining of genera lized headache rated at 9 out of 10 described as throbbing that has been going on for the last couple days. Patient denies any exacerbating or relieving factors to her headache. She states her dizziness is at times worse when she is up. Review of Systems Review of Systems Constitutional: Denies fever or chills [] Eyes: Denies change in visual acuity, redness, or eye pain [] HENT: Denies nasal congestion or sore throat [] Respiratory: Denies cough or shortness of breath [] Cardiovascular: No additional information not addressed in HPI [] GI: Denies abdominal pain, nausea, vomiting, bloody stools or diarrhea [] : Denies dysuria or hematuria [] Musculoskeletal: Denies back pain or joint pain [] Integument: Denies rash or skin lesions [] Neurologic: Reports headache and dizziness, denies focal weakness or sensory changes [] Endocrine: Denies polyuria or polydipsia [] All other systems were reviewed and found to be within normal limits, except as documented in this note. Current Medications Current Medications Current Medications Medications (Trade) Dose Ordered Sig/Inessa Start Time Stop Time Status Last Admin Dose Admin Acetaminophen (Tylenol) 1,000 mg 1X ONCE 03/23/19 10:15 03/23/19 10:16 DC 03/23/19 10:29 1,000 MG Clonidine HCl (Catapres) 0.1 mg 1X ONCE 03/23/19 10:15 03/23/19 10:16 DC 03/23/19 10:30 0.1 MG Gabapentin (Neurontin) 300 mg 1X ONCE 03/23/19 10:15 03/23/19 10:16 DC 03/23/19 10:29 300 MG Insulin Human Regular (HumuLIN R VIAL) 5 unit 1X ONCE 03/23/19 11:00 03/23/19 11:02 DC 03/23/19 11:19 5 UNIT Magnesium Sulfate/ Dextrose 100 ml @ 100 mls/hr 1X ONCE 03/23/19 11:00 03/23/19 11:59 DC 03/23/19 11:18 100 MLS/HR Meclizine HCl (Antivert) 12.5 mg 1X ONCE 03/23/19 10:30 03/23/19 10:31 DC 03/23/19 10:29 12.5 MG Sodium Chloride 1,000 ml @ 1,000 mls/hr 1X ONCE 03/23/19 10:15 03/23/19 11:14 DC 03/23/19 10:29 1,000 MLS/HR Allergies Allergies Allergies Coded Allergies Type Severity Reaction Last Updated Verified No Known Drug Allergies 12/29/16 No Physical Exam Physical Exam Constitutional: Well developed, well nourished, no acute distress, non-toxic appearance. [] HENT: Normocephalic, atraumatic, bilateral external ears normal, oropharynx moist, no oral exudates, nose normal. [] Eyes: PERRLA, EOMI, conjunctiva normal, no discharge. [] Neck: Normal range of motion, no tenderness, supple, no stridor. [] Cardiovascular:Heart rate regular rhythm, no murmur [] Lungs & Thorax: Bilateral breath sounds clear to auscultation [] Abdomen: Bowel sounds normal, soft, no tenderness, no masses, no pulsatile masses. [] Skin: Warm, dry, no erythema, no rash. [] Back: No tenderness, no CVA tenderness. [] Extremities: No tenderness, no cyanosis, no clubbing, ROM intact, no edema. [] Neurologic: Alert and oriented X 3, normal motor function, normal sensory function, no focal deficits noted. Cranial nerves II through XII intact Psychologic: Affect normal, judgement normal, mood normal. [] Current Patient Data Vital Signs Vital Signs Date Time Temp Pulse Resp B/P (MAP) Pulse Ox O2 Delivery O2 Flow Rate FiO2 03/23/19 11:02 67 16 97 03/23/19 10:30 200/82 03/23/19 10:05 98.4 Room Air 98.4 Lab Values Laboratory Tests Test 03/23/19 10:15 03/23/19 11:15 White Blood Count 4.6 x10^3/uL (4.0-11.0) Red Blood Count 4.16 x10^6/uL (3.50-5.40) Hemoglobin 12.0 g/dL (12.0-15.5) Hematocrit 35.7 % (36.0-47.0) L Mean Corpuscular Volume 86 fL (79-100) Mean Corpuscular Hemoglobin 29 pg (25-35) Mean Corpuscular Hemoglobin Concent 34 g/dL (31-37) Red Cell Distribution Width 13.3 % (11.5-14.5) Platelet Count 185 x10^3/uL (140-400) Neutrophils (%) (Auto) 50 % (31-73) Lymphocytes (%) (Auto) 39 % (24-48) Monocytes (%) (Auto) 7 % (0-9) Eosinophils (%) (Auto) 3 % (0-3) Basophils (%) (Auto) 1 % (0-3) Neutrophils # (Auto) 2.3 x10^3/uL (1.8-7.7) Lymphocytes # (Auto) 1.8 x10^3/uL (1.0-4.8) Monocytes # (Auto) 0.3 x10^3/uL (0.0-1.1) Eosinophils # (Auto) 0.2 x10^3/uL (0.0-0.7) Basophils # (Auto) 0.0 x10^3/uL (0.0-0.2) Sodium Level 139 mmol/L (136-145) Potassium Level 3.6 mmol/L (3.5-5.1) Chloride Level 103 mmol/L (98-107) Carbon Dioxide Level 28 mmol/L (21-32) Anion Gap 8 (6-14) Blood Urea Nitrogen 14 mg/dL (7-20) Creatinine 0.8 mg/dL (0.6-1.0) Estimated GFR (Cockcroft-Gault) 74.2 BUN/Creatinine Ratio 18 (6-20) Glucose Level 301 mg/dL (70-99) H Calcium Level 9.8 mg/dL (8.5-10.1) Magnesium Level 1.4 mg/dL (1.8-2.4) L Total Bilirubin 0.5 mg/dL (0.2-1.0) Aspartate Amino Transferase (AST) 13 U/L (15-37) L Alanine Aminotransferase (ALT) 21 U/L (14-59) Alkaline Phosphatase 117 U/L (46-116) H Creatine Kinase 37 U/L (26-192) Creatine Kinase MB (Mass) 0.5 ng/mL (0.0-3.6) Creatine Kinase MB Relative Index % (0-4) Troponin I Quantitative < 0.017 ng/mL (0.000-0.055) XR-Xoa-P-Type Natriuretic Peptide 278 pg/mL (0-124) H Total Protein 7.1 g/dL (6.4-8.2) Albumin 3.1 g/dL (3.4-5.0) L Albumin/Globulin Ratio 0.8 (1.0-1.7) L Lipase 124 U/L (73-393) Thyroid Stimulating Hormone (TSH) 4.854 uIU/mL (0.358-3.74) H Urine Collection Type Unknown Urine Color Yellow Urine Clarity Clear Urine pH 6.5 Urine Specific [place] 1.015 Urine Protein Negative mg/dL (NEG-TRACE) Urine Glucose (UA) >=1000 mg/dL (NEG) Urine Ketones (Stick) Negative mg/dL (NEG) Urine Blood Negative (NEG) Urine Nitrite Positive (NEG) Urine Bilirubin Negative (NEG) Urine Urobilinogen Dipstick 0.2 mg/dL (0.2 mg/dL) Urine Leukocyte Esterase Small (NEG) Urine RBC Occ /HPF (0-2) Urine WBC 5-10 /HPF (0-4) Urine Squamous Epithelial Cells Few /LPF Urine Bacteria Many /HPF (0-FEW) Urine Opiates Screen Neg (NEG) Urine Methadone Screen Neg (NEG) Urine Barbiturates Neg (NEG) Urine Phencyclidine Screen Neg (NEG) Urine Amphetamine/Methamphetamine Neg (NEG) Urine Benzodiazepines Screen Neg (NEG) Urine Cocaine Screen Neg (NEG) Urine Cannabinoids Screen Neg (NEG) Urine Ethyl Alcohol Neg (NEG) Laboratory Tests 03/23/19 10:15 Laboratory Tests 03/23/19 10:15 EKG EKG [address] Paniagua sinus rhythm HR 68 no STEMI[] Radiology/Procedures Radiology/Procedures []PROCEDURE: PORTABLE CHEST 1V PORTABLE CHEST 1V History: Headache and dizziness, high blood pressure Comparison: None. Findings: Single view of the chest is submitted. There is no infiltrate, pneumothorax, or effusion. Pericardial cardiac silhouette is considered within normal limits given technique. There is somewhat tortuous thoracic aorta. Impression: 1. There is no radiographic evidence of acute cardiopulmonary disease. Electronically signed by: Roxanna Bauman MD (03/23/2019 10:24 AM) [facility] DICTATED and SIGNED BY: ROXANNA BAUMAN MD DATE: 03/23/19 1024 PROCEDURE: CT HEAD WO CONTRAST CT HEAD WO CONTRAST Indication: Headache, dizziness, high blood pressure. Exposure: One or more of the following individualized dose reduction techniques were utilized for this examination: 1. Automated exposure control 2. Adjustment of the mA and/or kV according to patient size 3. Use of iterative reconstruction technique. Technique: Standard imaging without intravenous contrast. Comparison: None FINDINGS: No evidence of acute intracranial hemorrhage, mass effect, midline shift or abnormal extra-axial fluid collection. Ventricles and sulci are symmetric. [place]-white matter distinction is intact. Visualized orbits unremarkable. No notable scalp swelling. The visualized sinuses are clear. Visualized mastoids and auditory canals appear grossly clear. No evidence of acute skull abnormality. IMPRESSION: No evidence of acute intracranial hemorrhage. Consider follow-up with outpatient MRI if symptoms persist. Electronically signed by: Ritesh Solomon MD (03/23/2019 10:29 AM) [facility] DICTATED and SIGNED BY: RITESH SOLOMON MD DATE: 03/23/19 1029 Course & Med Decision Making Course & Med Decision Making Pertinent Labs and Imaging studies reviewed. (See chart for details) This is a 58-year-old female patient presented to the ED today complaining of dizziness, lightheadedness, symptoms began 3 weeks ago. Also complaining of a headache that began a couple days ago. Patient states she ran out of her blood pressure medications 3 weeks ago and has not had any chance to get refills because she is waiting for her insurance to kick in. Blood pressure on arrival to the ED is 200/82-Given clonidine. Blood pressure came down to 170s over 80s. Headache has improved. CT of the head is negative for any acute findings, chest x-ray is negative. CBC with no acute findings. CMP with glucose of 301, anion gap is normal. Magnesium 1.4. Patient was given magnesium IV in the ED. Given insulin. Given IV fluids. CMP with normal kidney function. Urine analysis is negative for acute tonsillitis. UA noted for nitrates and leukocytes-patient reports she has had some pain when she voids. D/c cephalaxin. Given rx for lisinopril, gabapentin which she takes for pain and [id number] with PCP in the course of next week. Dragtelma Disclaimer Dragon Disclaimer This electronic medical record was generated, in whole or in part, using a voice recognition dictation system. Departure Departure Impression: Primary Impression: Hypertension Additional Impressions: Headache Dizziness Urinary tract infection Hyperglycemia Disposition: HOME, SELF-CARE Condition: STABLE Referrals: NO PCP (PCP) Follow-up next week Patient Instructions: Dizziness, Cipw-[id number], Hypertension Additional Instructions: You were evaluated in the emergency room, your CT of the head, and chest x-ray were negative for any acute findings. Your labs were noted for high glucose. Ensure you are using your diabetes medicines. Please take your blood pressure medicines as well and complete your antibiotics for UTI. Follow up with your doctor in the course of this week. Scripts Cephalexin (CEPHALEXIN) 500 Mg Tablet 1 TAB PO BID, #14 TAB Prov: HERMILO BENNETT APRN 03/23/19 Gabapentin (GABAPENTIN ) 300 Mg Capsule 300 MG PO TID for NEUROGENIC PAIN, #90 CAP Prov: HERMILO BENNETT APRN 03/23/19 Lisinopril (LISINOPRIL) 10 Mg Tablet 1 TAB PO DAILY, #30 TAB 0 Refills Prov: HERMILO BENNETT APRN 03/23/19 Insulin Detemir (LEVEMIR) 100 Unit/1 Ml Vial 20 UNIT SQ BID, #1 VIAL Prov: HERMILO BENNETT APRN 03/23/19 Problem Qualifiers Primary Impression: Hypertension Hypertension type: unspecified Qualified Codes: I10 - Essential (primary) hypertension Additional Impressions: Headache Headache type: unspecified Headache chronicity pattern: acute headache Intractability: not intractable Qualified Codes: R51 - Headache Urinary tract infection Urinary tract infection type: site unspecified Hematuria presence: without hematuria Qualified Codes: N39.0 - Urinary tract infection, site not specified HERMILO BENNETT APRN Mar 23, 2019 10:17
[2019-03-23 10:27] LABS: BASO % 1 % (0-3); EOS # 0.2 x10^3/uL (0.0-0.7); EOS % 3 % (0-3); HEMATOCRIT 35.7 % (36.0-47.0); LYMPH # 1.8 x10^3/uL (1.0-4.8); LYMPH % 39 % (24-48); MEAN CORPUSCULAR HEMOGLOBIN 29 pg (25-35); MEAN CORPUSCULAR HGB CONC 34 g/dL (31-37); MEAN CORPUSCULAR VOLUME 86 fL (79-100); MONO # 0.3 x10^3/uL (0.0-1.1); MONO % 7 % (0-9); NEUT # 2.3 x10^3/uL (1.8-7.7); NEUT % 50 % (31-73); PLATELET COUNT 185 x10^3/uL (140-400); RED BLOOD COUNT 4.16 x10^6/uL (3.50-5.40); RED CELL DISTRIBUTION WIDTH 13.3 % (11.5-14.5); WHITE BLOOD COUNT 4.6 x10^3/uL (4.0-11.0)
--- NOTE | 2019-03-23 10:27 | RAD ---
PORTABLE CHEST 1V History: Headache and dizziness, high blood pressure Comparison: None. Findings: Single view of the chest is submitted. There is no infiltrate, pneumothorax, or effusion. Pericardial cardiac silhouette is considered within normal limits given technique. There is somewhat tortuous thoracic aorta. Impression: 1. There is no radiographic evidence of acute cardiopulmonary disease. Electronically signed by: Cristian Devries MD (03/23/2019 10:24 AM) [facility]
[2019-03-23] MEDS ORDERED: MECLIZINE HCL 12.5 MG TABLET. PO ONE (10:30)
--- NOTE | 2019-03-23 10:32 | RAD ---
CT HEAD WO CONTRAST Indication: Headache, dizziness, high blood pressure. Exposure: One or more of the following individualized dose reduction techniques were utilized for this examination: 1. Automated exposure control 2. Adjustment of the mA and/or kV according to patient size 3. Use of iterative reconstruction technique. Technique: Standard imaging without intravenous contrast. Comparison: None FINDINGS: No evidence of acute intracranial hemorrhage, mass effect, midline shift or abnormal extra-axial fluid collection. Ventricles and sulci are symmetric. [place]-white matter distinction is intact. Visualized orbits unremarkable. No notable scalp swelling. The visualized sinuses are clear. Visualized mastoids and auditory canals appear grossly clear. No evidence of acute skull abnormality. IMPRESSION: No evidence of acute intracranial hemorrhage. Consider follow-up with outpatient MRI if symptoms persist. Electronically signed by: Ritesh Solomon MD (03/23/2019 10:29 AM) [facility]
[2019-03-23 10:45] LABS: CALCIUM 9.8 mg/dL (8.5-10.1); CREATININE 0.8 mg/dL (0.6-1.0); GFR 74.2; POTASSIUM 3.6 mmol/L (3.5-5.1)
[2019-03-23 10:50] LABS: ALBUMIN 3.1 g/dL (3.4-5.0); ALBUMIN/GLOBULIN RATIO 0.8 (1.0-1.7); MAGNESIUM 1.4 mg/dL (1.8-2.4); TOTAL BILIRUBIN 0.5 mg/dL (0.2-1.0); TOTAL PROTEIN 7.1 g/dL (6.4-8.2)
[2019-03-23 10:59] LABS: CREATINE KINASE 37 U/L (26-192)
[2019-03-23] MEDS ORDERED: INSULIN REGULAR 100 UNIT/ML 3ML VIAL. IV ONE (11:00)
[2019-03-23] MEDS ORDERED: MAGNESIUM SULFATE 1GM 100 ML IV ONE (11:00)
[2019-03-23 11:34] LABS: BILIRUBIN,URINE NEGATIVE (NEG); CLARITY,URINE CLEAR; COLOR,URINE YELLOW; NITRITE,URINE POSITIVE (NEG); PH,URINE 6.5; PROTEIN,URINE NEGATIVE (NEG-TRACE); UROBILINOGEN,URINE 0.2 mg/dL (0.2 mg/dL)
[2019-03-23 11:41] LABS: AMPHETAMINE/METHAMPHETAMINE NEG (NEG); BARBITURATES NEG (NEG); BENZODIAZEPINES NEG (NEG); CANNABINOIDS NEG (NEG); COCAINE NEG (NEG); METHADONE NEG (NEG); OPIATES NEG (NEG); PHENCYCLIDINE NEG (NEG)
[2019-03-23 11:46] LABS: BACTERIA,URINE MANY /HPF (0-FEW); RBC,URINE OCC /HPF (0-2); SQUAMOUS EPITHELIAL CELL,UR FEW /LPF
[2019-03-23 12:02] VITALS: BP 153/81
[2019-03-23] MEDS ORDERED: GABA300C18 PO (12:11)
[2019-03-23] MEDS ORDERED: LISI10TA2 PO (12:11)
[2019-03-23] MEDS ORDERED: CEPH500T PO (12:11)
[2019-03-23] MEDS ORDERED: INSU100V13 SQ (12:11)
--- NOTE | 2019-03-23 14:35 | EKG ---
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
== END 2019-03-23 12:20 | disposition home or self-care (01) ==
LOC: ER 10:00
DX: I10 Essential (primary) hypertension (principal); R51 Headache; E11.65 Type 2 diabetes mellitus with hyperglycemia; R42 Dizziness and giddiness; N39.0 Urinary tract infection, site not specified; F41.9 Anxiety disorder, unspecified; F32.9 Major depressive disorder, single episode, unspecified; Z90.710 Acquired absence of both cervix and uterus; Z90.49 Acquired absence of other specified parts of digestive tract; Z72.89 Other problems related to lifestyle
CPT/HCPCS: 36415; 70450; 71045; 80053; 80307; 81001; 82553; 83690; 83735; 83880; 84443; 84484; 85025; 93005; 96361; 96365; 96375; 99285; J1815; J3475; J7030; J8597

== ENCOUNTER 2019-09-11 15:12 | Emergency (ER) | payer SELFPAY ==
[~2019-09-11] VITALS: Ht 165.1 cm; Wt 88.6 kg
[~2019-09-11 15:12] MED LIST changes: +CEPH500T PO; +GABA300C18 PO; +LISI10TA2 PO
[2019-09-11] MEDS ORDERED: ACETAMINOPHEN 500 MG TABLET PO ONE (15:45)
[2019-09-11] MEDS ORDERED: IV NORMAL SALINE 1000ML BAG 1,000 ML IV ONE (15:45)
--- NOTE | 2019-09-11 15:51 | EKG ---
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
[2019-09-11 16:04] LABS: BASO % 1 % (0-3); EOS # 0.1 x10^3/uL (0.0-0.7); EOS % 2 % (0-3); HEMATOCRIT 38.8 % (36.0-47.0); HEMOGLOBIN 12.9 g/dL (12.0-15.5); LYMPH # 1.8 x10^3/uL (1.0-4.8); LYMPH % 35 % (24-48); MEAN CORPUSCULAR HEMOGLOBIN 28 pg (25-35); MEAN CORPUSCULAR HGB CONC 33 g/dL (31-37); MEAN CORPUSCULAR VOLUME 85 fL (79-100); MONO # 0.3 x10^3/uL (0.0-1.1); MONO % 6 % (0-9); NEUT # 2.8 x10^3/uL (1.8-7.7); NEUT % 56 % (31-73); PLATELET COUNT 179 x10^3/uL (140-400); RED BLOOD COUNT 4.58 x10^6/uL (3.50-5.40); RED CELL DISTRIBUTION WIDTH 15.1 % (11.5-14.5)
[2019-09-11 16:16] LABS: CALCIUM 9.7 mg/dL (8.5-10.1); CREATININE 1.1 mg/dL (0.6-1.0); GFR 51.4; POTASSIUM 4.5 mmol/L (3.5-5.1)
[2019-09-11 16:18] LABS: BILIRUBIN,URINE NEGATIVE (NEG); CLARITY,URINE CLEAR; COLOR,URINE YELLOW; NITRITE,URINE NEGATIVE (NEG); PROTEIN,URINE NEGATIVE (NEG-TRACE); UROBILINOGEN,URINE 0.2 mg/dL (0.2 mg/dL)
[2019-09-11 16:22] LABS: ALBUMIN 3.4 g/dL (3.4-5.0); ALBUMIN/GLOBULIN RATIO 0.9 (1.0-1.7); MAGNESIUM 1.4 mg/dL (1.8-2.4); TOTAL BILIRUBIN 0.4 mg/dL (0.2-1.0); TOTAL PROTEIN 7.4 g/dL (6.4-8.2)
[2019-09-11 16:27] LABS: HYALINE CASTS, URINE FEW /HPF; SQUAMOUS EPITHELIAL CELL,UR MOD /LPF
[2019-09-11 16:28] LABS: BACTERIA,URINE FEW /HPF (0-FEW)
[2019-09-11 16:43] LABS: CREATINE KINASE 43 U/L (26-192)
[2019-09-11] MEDS ORDERED: NYST15PO9 TP (16:53)
--- NOTE | 2019-09-11 16:59 | PHYS DOC ---
Past Medical History Past Medical History: Anxiety, Depression, Diabetes-Type II, Hypertension Additional Past Medical Histor: neuropathy Past Surgical History: Cholecystectomy, Hysterectomy Smoking Status: Never Smoker Alcohol Use: Rarely Drug Use: None General Adult EDM: Chief Complaint: BLOOD SUGAR PROBLEM HPI: HPI: 58 year old female presents with multiple complaints including headache, chest pain, palpitations, body aches, and rash to groin. Denies fever/chills. Denies trauma. Denies leg swelling or calf tenderness. Denies dysuria. Review of Systems: Review of Systems: Constitutional: Denies fever or chills Eyes: Denies change in visual acuity, redness, or eye pain HENT: Denies nasal congestion or sore throat Respiratory: Denies cough or shortness of breath Cardiovascular: Reports chest pain and palpitations GI: Denies abdominal pain, nausea, vomiting, or diarrhea : Denies dysuria or hematuria Musculoskeletal: Denies back pain or joint pain Integument: Reports rash; denies skin lesions Neurologic: Reports headache; denies focal weakness or sensory changes Complete systems were reviewed and found to be within normal limits, except as documented in this note. Heart Score: HEART Score for Chest Pain: HEART Score for Chest Pain Response (Comments) Value History Slighlty/Non-Suspicious 0 ECG Normal 0 Age >45 - < 65 1 Risk Factors 1 or 2 Risk Factors 1 Troponin < Normal Limit 0 Total 2 Risk Factors: Risk Factors: DM, Current or recent (<one month) smoker, HTN, HLP, family history of CAD, obesity. Risk Scores: Score 0 - 3: 2.5% MACE over next 6 weeks - Discharge Home Score 4 - 6: 20.3% MACE over next 6 weeks - Admit for Clinical Observation Score 7 - 10: 72.7% MACE over next 6 weeks - Early Invasive Strategies Current Medications: Current Medications Medications (Trade) Dose Ordered Sig/[facility] Start Time Stop Time Status Last Admin Dose Admin Acetaminophen (Tylenol) 500 mg 1X ONCE 09/11/19 15:45 09/11/19 15:46 DC 09/11/19 16:07 500 MG Sodium Chloride 1,000 ml @ 1,000 mls/hr 1X ONCE 09/11/19 15:45 09/11/19 16:44 DC 09/11/19 16:07 1,000 MLS/HR Allergies: Allergies: Allergies Coded Allergies Type Severity Reaction Last Updated Verified No Known Drug Allergies 12/29/16 No Physical Exam: PE: Constitutional: Well developed, well nourished, no acute distress, non-toxic appearance HENT: Normocephalic, atraumatic, oropharynx moist Eyes: PERRL, EOMI, conjunctiva normal, no discharge Neck: Normal range of motion, no tenderness, supple Cardiovascular: Heart rate normal, regular rhythm Lungs & Thorax: Bilateral breath sounds clear to auscultation, no wheezing Abdomen: Soft, no tenderness Skin: Warm, dry, no erythema Back: No tenderness, no CVA tenderness Extremities: No tenderness, ROM intact Neurologic: Alert and oriented X 3, normal motor function, normal sensory function, no focal deficits noted Psychologic: Affect normal, judgement normal Current Patient Data: Labs: Laboratory Tests Test 09/11/19 15:50 09/11/19 15:52 White Blood Count 5.0 x10^3/uL (4.0-11.0) Red Blood Count 4.58 x10^6/uL (3.50-5.40) Hemoglobin 12.9 g/dL (12.0-15.5) Hematocrit 38.8 % (36.0-47.0) Mean Corpuscular Volume 85 fL (79-100) Mean Corpuscular Hemoglobin 28 pg (25-35) Mean Corpuscular Hemoglobin Concent 33 g/dL (31-37) Red Cell Distribution Width 15.1 % (11.5-14.5) H Platelet Count 179 x10^3/uL (140-400) Neutrophils (%) (Auto) 56 % (31-73) Lymphocytes (%) (Auto) 35 % (24-48) Monocytes (%) (Auto) 6 % (0-9) Eosinophils (%) (Auto) 2 % (0-3) Basophils (%) (Auto) 1 % (0-3) Neutrophils # (Auto) 2.8 x10^3/uL (1.8-7.7) Lymphocytes # (Auto) 1.8 x10^3/uL (1.0-4.8) Monocytes # (Auto) 0.3 x10^3/uL (0.0-1.1) Eosinophils # (Auto) 0.1 x10^3/uL (0.0-0.7) Basophils # (Auto) 0.0 x10^3/uL (0.0-0.2) Sodium Level 137 mmol/L (136-145) Potassium Level 4.5 mmol/L (3.5-5.1) Chloride Level 101 mmol/L (98-107) Carbon Dioxide Level 25 mmol/L (21-32) Anion Gap 11 (6-14) Blood Urea Nitrogen 16 mg/dL (7-20) Creatinine 1.1 mg/dL (0.6-1.0) H Estimated GFR (Cockcroft-Gault) 51.4 BUN/Creatinine Ratio 15 (6-20) Glucose Level 346 mg/dL (70-99) H Calcium Level 9.7 mg/dL (8.5-10.1) Magnesium Level 1.4 mg/dL (1.8-2.4) L Total Bilirubin 0.4 mg/dL (0.2-1.0) Aspartate Amino Transferase (AST) 13 U/L (15-37) L Alanine Aminotransferase (ALT) 20 U/L (14-59) Alkaline Phosphatase 134 U/L (46-116) H Troponin I Quantitative < 0.017 ng/mL (0.000-0.055) Total Protein 7.4 g/dL (6.4-8.2) Albumin 3.4 g/dL (3.4-5.0) Albumin/Globulin Ratio 0.9 (1.0-1.7) L Acetone Level Neg (NEG) Urine Collection Type Unknown Urine Color Yellow Urine Clarity Clear Urine pH 6.0 (<5.0-8.0) Urine Specific [place] 1.020 (1.000-1.030) Urine Protein Negative mg/dL (NEG-TRACE) Urine Glucose (UA) >=1000 mg/dL (NEG) Urine Ketones (Stick) Negative mg/dL (NEG) Urine Blood Trace (NEG) Urine Nitrite Negative (NEG) Urine Bilirubin Negative (NEG) Urine Urobilinogen Dipstick 0.2 mg/dL (0.2 mg/dL) Urine Leukocyte Esterase Negative (NEG) Urine RBC 1-2 /HPF (0-2) Urine WBC 1-4 /HPF (0-4) Urine Squamous Epithelial Cells Mod /LPF Urine Bacteria Few /HPF (0-FEW) Urine Hyaline Casts Few /HPF Urine Mucus Slight /LPF Laboratory Tests 09/11/19 15:50 Laboratory Tests 09/11/19 15:50 Vital Signs: Vital Signs Date Time Temp Pulse Resp B/P (MAP) Pulse Ox O2 Delivery O2 Flow Rate FiO2 09/11/19 15:20 98.0 79 22 205/91 (129) 99 Room Air 98.0 EKG: EKG: @1548 NSR at 79bpm, NO ST elevation, QRS 84ms. QT/QTc 372/428ms Radiology/Procedures: Radiology/Procedures: PROCEDURE: CHEST PA & LATERAL CHEST PA LATERAL History: Weakness Comparison: AP chest March 23, 2019. Findings: The cardiomediastinal silhouette is normal. Pulmonary vasculature is normal. The lungs are clear. No pleural effusion or pneumothorax is seen. There is no acute bone abnormality. IMPRESSION: No acute cardiopulmonary process. Electronically signed by: James Dior MD (09/11/2019 5:07 PM) [id number] Course & Med Decision Making: Course & Med Decision Making Pertinent Labs and Imaging studies reviewed. (See chart for details) Patient presents with multiple complaints. EKG stable. Labs obtained and posted to chart. Troponin WNL. Glucose 346. Acetone negative. UA without signs of infection. HEART score 2. CXR without acute process. IVF hydration given. Hypomagnesemia addressed. Patient stable for discharge home with outpatient follow-up with PCP. Discussed findings and plan with patient, who acknowledges understanding and agreement. Juliet Disclaimer: Juliet Disclaimer: This electronic medical record was generated, in whole or in part, using a voice recognition dictation system. Departure Departure Impression: Primary Impression: Hyperglycemia Additional Impressions: Hypomagnesemia Candidal dermatitis Disposition: HOME, SELF-CARE Condition: STABLE Referrals: NO PCP (PCP) Patient Instructions: Tamra Infection, Adult, Hyperglycemia, [id number], Hypomagnesemia Scripts Nystatin (NYSTATIN) 15 Gm Powder 1 AKI TP BID PRN for RASH for 7 Days, #1 BOTTLE 0 Refills apply to affected area(s) Prov: JOANNE LINDSAY DO 09/11/19 JOANNE LINDSAY DO Sep 11, 2019 16:58
[2019-09-11] MEDS ORDERED: MAGNESIUM CHLORIDE ER 64 MG TABLET.ER PO ONE (17:00)
[2019-09-11] MEDS ORDERED: FLUCONAZOLE 100 MG TABLET. PO ONE (17:00)
--- NOTE | 2019-09-11 17:10 | RAD ---
CHEST PA LATERAL History: Weakness Comparison: AP chest March 23, 2019. Findings: The cardiomediastinal silhouette is normal. Pulmonary vasculature is normal. The lungs are clear. No pleural effusion or pneumothorax is seen. There is no acute bone abnormality. IMPRESSION: No acute cardiopulmonary process. Electronically signed by: James Dior MD (09/11/2019 5:07 PM) [id number]
[2019-09-11 17:14] VITALS: BP 167/81
== END 2019-09-11 17:16 | disposition home or self-care (01) ==
LOC: ER 15:12
DX: E11.65 Type 2 diabetes mellitus with hyperglycemia (principal); E83.42 Hypomagnesemia; B37.2 Candidiasis of skin and nail; E11.40 Type 2 diabetes mellitus with diabetic neuropathy, unspecified; I10 Essential (primary) hypertension
CPT/HCPCS: 71046; 80053; 81001; 82010; 82553; 83735; 83930; 84484; 85025; 93005; 96360; 99285; J7030; 36415